=== PATIENT | female | born 1955 | race Caucasian/White ===

== ENCOUNTER 2018-04-29 23:40 | Emergency (ER) | payer OTHER ==
[~2018-04-29] VITALS: Ht 170.2 cm; Wt 97.7 kg
[2018-04-29 23:52] VITALS: BP 106/61
[2018-04-30] MEDS ORDERED: ondansetron 4mg rapidly disintigrating tab PO ONE (00:20)
[2018-04-30] MEDS ORDERED: morphine 10mg/ml inj. IM ONE (00:20)
[2018-04-30] MEDS ORDERED: HYDR-565 PO (00:26)
== END 2018-04-30 01:00 | disposition home or self-care (01) ==
LOC: ER 23:41
DX: S82.51XA Displaced fracture of medial malleolus of right tibia, initial encounter for closed fracture (principal); S82.831A Other fracture of upper and lower end of right fibula, initial encounter for closed fracture; M06.9 Rheumatoid arthritis, unspecified; Z79.899 Other long term (current) drug therapy; W01.0XXA Fall on same level from slipping, tripping and stumbling without subsequent striking against object, initial encounter; Y93.89 Activity, other specified; Y92.89 Other specified places as the place of occurrence of the external cause; Y99.8 Other external cause status
CPT/HCPCS: 29515; 73610; 96372; 99284; A6449; J2270

== ENCOUNTER 2022-03-23 11:26 | Day surgery (SDC) | payer OTHER ==
[2022-03-18 14:19] LABS: BASOPHILS # (AUTO) 0.1 X10'3 (0-0.2); BASOPHILS % (AUTO) 0.6 % (0-1); EOSINOPHILS # (AUTO) 0.2 X10'3 (0-0.9); EOSINOPHILS % (AUTO) 1.9 % (0-6); HEMATOCRIT 40.8 % (35.0-45.0); HEMOGLOBIN 13.6 g/dl (12.0-16.0); MEAN CORPUSCULAR HEMOGLOBIN 32.3 PG (27.0-31.0); MEAN CORPUSCULAR HGB CONC 33.3 g/dL (33.0-36.5); MEAN CORPUSCULAR VOLUME 97.2 FL (78-98); MEAN PLATELET VOLUME 8.4 FL (7.4-10.4); MONOCYTES # (AUTO) 0.9 X10'3 (0-0.9); MONOCYTES % (AUTO) 9.3 % (2-12); NEUTROPHILS # (AUTO) 6.5 X10'3 (1.8-7.7); NEUTROPHILS % (AUTO) 67.2 % (42-75); PLATELET COUNT 249 X10'3 (140-440); WHITE BLOOD COUNT 9.6 X10'3 (4.5-11.0)
[2022-03-18 14:25] LABS: ALBUMIN 3.4 G/DL (3.4-5.0); ANION GAP 10 (8-16); BLOOD UREA NITROGEN 10 MG/DL (7-18); BUN/CREATININE RATIO 9.6 (6.6-38.0); CALCIUM 8.7 MG/DL (8.5-10.1); CHLORIDE 107 MMOL/L (99-107); CREATININE 1.04 MG/DL (0.40-0.90); GLUCOSE 109 MG/DL (70-104); SODIUM 142 MMOL/L (135-145); TOTAL CARBON DIOXIDE 25.3 MMOL/L (24-32); eGFR 53 ML/MIN
[2022-03-18 14:26] LABS: APTT 28 SECONDS (22-32)
[~2022-03-23] VITALS: Ht 170.2 cm; Wt 106.5 kg
[2022-03-23] VITALS (9 sets, daily range): BP systolic 100–120; BP diastolic 55–85
[2022-03-23] MEDS ORDERED: normal saline 1000ml 1,000 ML IV SCH (11:50)
[2022-03-23] MEDS ORDERED: fentaNYL/PF 50MCG/1 ML 2ML syringe IV ONE (11:50)
[2022-03-23] MEDS ORDERED: MIDAZolam 1mg/ml 10ml vial IV ONE (11:50)
[2022-03-23] MEDS ORDERED: LEVO100T PO (11:55)
[2022-03-23] MEDS ORDERED: METO-384 PO (11:55)
[2022-03-23] MEDS ORDERED: APIX5TAB3 PO (11:55)
[2022-03-23] MEDS ORDERED: SOTA80TA73 PO (11:55)
[2022-03-23] MEDS ORDERED: FOLI1TAB27 PO (11:55)
[2022-03-23] MEDS ORDERED: METH2.5T55 PO (11:55)
[2022-03-23] MEDS ORDERED: TRAM50TA2 PO (11:55)
[2022-03-23] MEDS ORDERED: PANT40TA54 PO (11:57)
== END 2022-03-23 15:10 | disposition home or self-care (01) ==
LOC: SSTAY O 11:26
PROVIDERS: ATTEND Student in an Organized Health Care Education/Training Program
DX: I48.91 Unspecified atrial fibrillation (principal); G47.33 Obstructive sleep apnea (adult) (pediatric); E03.9 Hypothyroidism, unspecified; Z79.899 Other long term (current) drug therapy; Z79.01 Long term (current) use of anticoagulants
CPT/HCPCS: 36415; 80048; 85025; 85610; 85730; 92960; 93005; 94799; J2250; J3010; J7030; A4620

== ENCOUNTER 2022-04-27 11:21 | Day surgery (SDC) | payer OTHER ==
[2022-04-26 11:43] LABS: BASOPHILS # (AUTO) 0.1 X10'3 (0-0.2); BASOPHILS % (AUTO) 0.8 % (0-1); EOSINOPHILS # (AUTO) 0.2 X10'3 (0-0.9); EOSINOPHILS % (AUTO) 3.4 % (0-6); HEMATOCRIT 43.1 % (35.0-45.0); HEMOGLOBIN 14.4 g/dl (12.0-16.0); LYMPHOCYTES % (AUTO) 30.1 % (21-51); MEAN CORPUSCULAR HEMOGLOBIN 32.3 PG (27.0-31.0); MEAN CORPUSCULAR HGB CONC 33.3 g/dL (33.0-36.5); MEAN CORPUSCULAR VOLUME 96.9 FL (78-98); MONOCYTES # (AUTO) 0.4 X10'3 (0-0.9); MONOCYTES % (AUTO) 5.5 % (2-12); NEUTROPHILS # (AUTO) 4.1 X10'3 (1.8-7.7); NEUTROPHILS % (AUTO) 60.2 % (42-75); PLATELET COUNT 268 X10'3 (140-440); RED BLOOD COUNT 4.45 X10'6 (4.20-5.60); WHITE BLOOD COUNT 6.8 X10'3 (4.5-11.0)
[2022-04-26 11:59] LABS: ALBUMIN 3.6 G/DL (3.4-5.0); ANION GAP 10 (8-16); BLOOD UREA NITROGEN 13 MG/DL (7-18); CALCIUM 9.2 MG/DL (8.5-10.1); CHLORIDE 107 MMOL/L (99-107); CREATININE 0.93 MG/DL (0.40-0.90); GLUCOSE 150 MG/DL (70-104); SODIUM 142 MMOL/L (135-145); TOTAL CARBON DIOXIDE 24.6 MMOL/L (24-32); eGFR 61 ML/MIN
[2022-04-26 12:01] LABS: APTT 28 SECONDS (22-32)
[2022-04-27] VITALS (11 sets, daily range): BP systolic 100–136; BP diastolic 49–74
[~2022-04-27] VITALS: Ht 170.2 cm; Wt 105.9 kg
[~2022-04-27 11:21] MED LIST: APIX5TAB3 PO; FOLI1TAB27 PO; LEVO100T PO; METH2.5T55 PO; METO-384 PO; PANT40TA54 PO; SOTA80TA73 PO; TRAM50TA2 PO
[2022-04-27] MEDS ORDERED: MIDAZolam 1mg/ml 10ml vial IV ONE (11:40)
[2022-04-27] MEDS ORDERED: fentaNYL/PF 50MCG/1 ML 2ML syringe IV ONE (11:40)
[2022-04-27] MEDS ORDERED: normal saline 1000ml 1,000 ML IV SCH (11:40)
[2022-04-27] MEDS ORDERED: AMIO200T61 PO (11:48)
[2022-04-27] MEDS ORDERED: FOLI1TAB27 PO (11:50)
[2022-04-27] MEDS ORDERED: LEUC5TAB PO (11:50)
[2022-04-27 12:23] LABS: CHOL/HDL RATIO 3.5 (0.00-4.99); CHOLESTEROL 184 MG/DL (0-200); HDL CHOLESTEROL 53 MG/DL (35-60); LDL CHOLESTEROL 111 MG/DL (50-100); TRIGLYCERIDES 118 MG/DL (20-135)
== END 2022-04-27 14:55 | disposition home or self-care (01) ==
LOC: SSTAY O 11:21
PROVIDERS: ATTEND Student in an Organized Health Care Education/Training Program
DX: I48.91 Unspecified atrial fibrillation (principal); G47.33 Obstructive sleep apnea (adult) (pediatric); E03.9 Hypothyroidism, unspecified; Z79.899 Other long term (current) drug therapy; Z98.890 Other specified postprocedural states
CPT/HCPCS: 36415; 80048; 80061; 85025; 85610; 85730; 92960; 93005; 94760; 94799; J2250; J3010; J7030; A4620

== ENCOUNTER 2024-04-06 01:48 | Emergency (ER) | payer BC, MEDICARE ==
[~2024-04-06] VITALS: Ht 170.2 cm; Wt 109.1 kg
[~2024-04-06 01:48] MED LIST changes: +AMI200T PO; +LEUC5TAB PO; -SOTA80TA73 PO
[2024-04-06 02:55] LABS: BILIRUBIN,URINE NEGATIVE (Neg); CLARITY,URINE CLEAR (Clear); COLOR,URINE YELLOW (Yellow); GLUCOSE, URINE NEGATIVE (Neg); KETONES,URINE NEGATIVE (Neg); LEUKOCYTE ESTERASE ,URINE NEGATIVE (Neg); NITRITES, URINE NEGATIVE (Neg); OCCULT BLOOD,URINE SMALL (Neg); PH,URINE 6.5 (4.8-8.0); PROTEIN,URINE NEGATIVE (Neg); UROBILINOGEN,URINE 0.2 E.U/dL (0.2-1.0)
[2024-04-06 02:59] LABS: BASOPHILS % (AUTO) 0.3 % (0-1); EOSINOPHILS # (AUTO) 0.3 X10'3 (0-0.9); HEMATOCRIT 38.3 % (35.0-45.0); HEMOGLOBIN 13.1 g/dl (12.0-16.0); LYMPHOCYTES # (AUTO) 1.8 X10'3 (1.1-4.8); LYMPHOCYTES % (AUTO) 16.7 % (21-51); MEAN CORPUSCULAR HEMOGLOBIN 35.1 PG (27.0-31.0); MEAN CORPUSCULAR HGB CONC 34.2 g/dL (33.0-36.5); MEAN CORPUSCULAR VOLUME 102.6 FL (78-98); MEAN PLATELET VOLUME 8.2 FL (7.4-10.4); MONOCYTES % (AUTO) 8.9 % (2-12); NEUTROPHILS # (AUTO) 7.7 X10'3 (1.8-7.7); NEUTROPHILS % (AUTO) 71.1 % (42-75); PLATELET COUNT 291 X10'3 (140-440); RED BLOOD COUNT 3.73 X10'6 (4.20-5.60); RED CELL DISTRIBUTION WIDTH 14.7 % (11.5-14.5); WHITE BLOOD COUNT 10.8 X10'3 (4.5-11.0)
[2024-04-06 03:05] LABS: ALANINE AMINOTRANSFERASE 30 U/L (12-78); ALBUMIN 3.1 G/DL (3.4-5.0); ALBUMIN/GLOBULIN RATIO 0.7 (1.1-1.5); ALKALINE PHOSPHATASE 59 IU/L (46-116); ANION GAP 9 (8-16); ASPARTATE AMINO TRANSFERASE 17 U/L (10-37); BILIRUBIN,TOTAL 0.5 MG/DL (0.1-1.0); BLOOD UREA NITROGEN 9 MG/DL (7-18); BUN/CREATININE RATIO 10.5 (10.0-20.0); CALCIUM 9.3 MG/DL (8.5-10.1); CHLORIDE 102 MMOL/L (99-107); CREATININE 0.86 MG/DL (0.40-0.90); GLUCOSE 133 MG/DL (70-104); LIPASE 24 U/L (16-77); POTASSIUM 4.1 MMOL/L (3.5-5.1); SODIUM 138 MMOL/L (135-145); TOTAL CARBON DIOXIDE 27.2 MMOL/L (24-32); TOTAL PROTEIN 7.7 G/DL (6.4-8.2); eCRCL 62 ML/MIN; eGFR 66 ML/MIN
[2024-04-06 03:08] LABS: URINE AMPHETAMINE SCREEN NEGATIVE (Neg); URINE BARBITUATE SCREEN NEGATIVE (Neg); URINE BENZODIAZEPINES SCREEN NEGATIVE (Neg); URINE CANNABINOID SCREEN NEGATIVE (Neg); URINE COCAINE SCREEN NEGATIVE (Neg); URINE METHADONE SCREEN NEGATIVE (Neg); URINE OPIATE SCREEN NEGATIVE (Neg); URINE PHENCYCLIDINE SCREEN NEGATIVE (Neg)
[2024-04-06 03:28] LABS: UA COLLECTION TYPE NON-SPECIFIED
[2024-04-06 03:30] LABS: BACTERIA,URINE FEW /HPF (Neg); MUCUS STRANDS FEW /LPF (Neg); SQUAMOUS EPITHELIAL CELL,UR MODERATE /LPF (FEW); TRANSITIONAL EPI CELLS,URINE FEW /HPF; WBC,URINE 0-4 /HPF (0-4)
[2024-04-06 03:31] LABS: RENAL CELLS, URINE FEW /HPF
[2024-04-06] MEDS ORDERED: iohexol 300mg/ml 100ml inj. ONE (03:52)
[2024-04-06] MEDS ORDERED: METR-159 PO (05:23)
[2024-04-06] MEDS ORDERED: CIPR-202 PO (05:23)
[2024-04-06] MEDS: ciprofloxacin 250mg tablet PO ONE (05:26)
[2024-04-06] MEDS: metroNIDAZOLE 500mg tablet PO ONE (05:26)
[2024-04-06 05:55] VITALS: BP 115/69; PULSE 68; RESP 16; TEMP 98.6; O2SAT 98
== END 2024-04-06 05:57 | disposition home or self-care (01) ==
LOC: ER 01:49
DX: K57.92 Diverticulitis of intestine, part unspecified, without perforation or abscess without bleeding (principal); K59.00 Constipation, unspecified; Z79.899 Other long term (current) drug therapy
CPT/HCPCS: 36415; 74177; 80053; 80305; 81001; 83690; 85025; 99285; Q9967